=== PATIENT | male | born 1955 | race Caucasian/White ===

== ENCOUNTER 2016-05-11 06:02 | Day surgery (SDC) | payer BC ==
[~2016-05-11] VITALS: Ht 167.6 cm; Wt 80.7 kg
[~2016-05-11 06:02] MED LIST: FISH OIL1 CAP PO; MULTI VITAMIN D1 TAB PO
[2016-05-11 08:30] VITALS: BP 142/61
== END 2016-05-11 08:45 | disposition home or self-care (01) | DRG 951 ==
LOC: ENDO 06:02
PROVIDERS: ATTEND Surgery
PROC: 0DJD8ZZ Inspection of Lower Intestinal Tract, Via Natural or Artificial Opening Endoscopic (ICD-10-PCS; principal; 2016-05-11)
DX: Z12.11 Encounter for screening for malignant neoplasm of colon (principal); E11.9 Type 2 diabetes mellitus without complications

== ENCOUNTER 2018-12-27 08:51 | Day surgery (SDC) | payer MEDICARE ==
[~2018-12-27] VITALS: Ht 167.6 cm; Wt 78.0 kg
[~2018-12-27 08:51] MED LIST changes: +ASPIRIN81 MG PO; +COQ10200 MG PO; +LIPITOR10 M1 PO; +MAGNESIUM250 M2 PO; +SAW PALMETTO160 M1 PO
[2018-12-27] MEDS ORDERED: PERCOCET 5/325M1 TAB PO (11:37)
[2018-12-27 12:14] VITALS: BP 152/83
== END 2018-12-27 12:20 | disposition home or self-care (01) ==
LOC: ORM 08:51
PROVIDERS: ATTEND Surgery
PROC: 06BY3ZC Excision of Hemorrhoidal Plexus, Percutaneous Approach (ICD-10-PCS; principal; 2018-12-27)
DX: K64.8 Other hemorrhoids (principal)
CPT/HCPCS: C9290; J0131

== ENCOUNTER 2019-08-16 18:46 | Emergency (ER) | payer MEDICARE ==
[~2019-08-16] VITALS: Ht 170.2 cm; Wt 77.2 kg
[~2019-08-16 18:46] MED LIST changes: +PERCOCET 5/325M1 TAB PO
[2019-08-16] MEDS ORDERED: METFORMIN500 M2 PO (19:07)
[2019-08-16 19:42] LABS: HEMATOCRIT 37.3 % (39.0-50.0); HEMOGLOBIN 12.9 g/dl (14.0-18.0); IMMATURE GRANULOCYTES 0.4 % (0.0-5.0); MEAN CELL VOLUME 90.5 fL CALC (80.0-100.0); MEAN CORPUSCULAR HGB 31.3 pG CALC (26.0-32.0); MEAN CORPUSCULAR HGB CONC 34.6 g/dL CAL (32.0-36.0); NEUT# 4.42 thou/uL (1.82-7.42); RED BLOOD COUNT 4.12 mill/uL (4.70-6.10); RED CELL DISTRI WIDTH 11.9 % (11.5-15.5); URINE BLOOD DIPSTICK NEGATIVE (NEGATIVE); URINE COLOR YELLOW; URINE GLUCOSE - DIPSTICK 100 mg/dL (NEGATIVE); URINE KETONE NEGATIVE (NEGATIVE); URINE LEUK ESTERASE NEGATIVE (NEGATIVE); URINE NITRITE - DIPSTICK NEGATIVE (Negative); URINE PROTEIN - DIPSTICK NEGATIVE (NEG-TRACE); URINE UROBILINOGEN - DIPSTICK 0.2 E.U./dL (0.2)
[2019-08-16 20:11] LABS: URINE BILIRUBIN - DIPSTICK MODERATE (NEGATIVE)
[2019-08-16 20:30] LABS: ALBUMIN 4.4 g/dL (3.2-5.0); ALKALINE PHOSPHATASE 308 u/l (38-126); AMYLASE 64 u/l (30-110); ANION GAP 13 (6-22 (CALC)); BILIRUBIN, TOTAL 7.5 mg/dL (0.0-1.4); BUN 15 mg/dL (8-23); BUN/CREATININE RATIO 22 (12-20 (CALC)); CARBON DIOXIDE 26 mmol/l (22-30); CHLORIDE 98 mmol/l (95-108); CREATININE 0.7 mg/dL (0.7-1.3); GFR > 60 ML/MIN (>=60 (CALC)); GFR FOR AFR.AMER. > 60 ML/MIN (>=60 (CALC)); LIPASE 775 u/l (23-300); MAGNESIUM 2.1 mg/dL (1.6-2.3); SGOT/AST 338 u/l (19-48); SODIUM 133 mmol/l (137-146); TOTAL PROTEIN 7.1 g/dL (6.3-8.2)
[2019-08-16 21:24] LABS: DIRECT BILIRUBIN 3.8 mg/dl (0.0-0.3)
[2019-08-16 22:40] VITALS: BP 145/79
== END 2019-08-16 22:40 ==
LOC: ED 18:46
PROVIDERS: Family Medicine
DX: K83.1 Obstruction of bile duct (principal); E11.9 Type 2 diabetes mellitus without complications; Z79.84 Long term (current) use of oral hypoglycemic drugs
CPT/HCPCS: Q9967

== ENCOUNTER 2020-05-02 03:58 | Emergency (ER) | payer MEDICARE ==
[~2020-05-02] VITALS: Ht 167.6 cm; Wt 60.0 kg
[2020-05-02] VITALS (11 sets, daily range): BP systolic 116–135; BP diastolic 67–83
[~2020-05-02 03:58] MED LIST changes: +METFORMIN500 M2 PO
[2020-05-02 05:23] LABS: IMMATURE GRANULOCYTES 2.1 % (0.0-5.0); MEAN CELL VOLUME 90.6 fL CALC (80.0-100.0); MEAN CORPUSCULAR HGB CONC 33.2 g/dL CAL (32.0-36.0); NEUT# 5.86 thou/uL (1.82-7.42); RED BLOOD COUNT 2.03 mill/uL (4.70-6.10); RED CELL DISTRI WIDTH 15.5 % (11.5-15.5)
[2020-05-02 05:27] LABS: HEMATOCRIT 18.4 % (39.0-50.0); HEMOGLOBIN 6.1 g/dl (14.0-18.0)
[2020-05-02] MEDS ORDERED: POTASSIUM CHLO20 ME2 PO (05:43)
[2020-05-02] MEDS ORDERED: TRESIBA100 UNIT/M SC (05:43)
[2020-05-02] MEDS ORDERED: CREON24000 UNT PO (05:44)
[2020-05-02] MEDS ORDERED: OMEPRAZOLE DR40 MG PO (05:44)
[2020-05-02 05:46] LABS: ANION GAP 14 (6-22 (CALC)); BUN 23 mg/dL (8-23); BUN/CREATININE RATIO 62 (12-20 (CALC)); CARBON DIOXIDE 24 mmol/l (22-30); CHLORIDE 97 mmol/l (95-108); CREATININE 0.4 mg/dL (0.7-1.3); GFR > 60 ML/MIN (>=60 (CALC)); GFR FOR AFR.AMER. > 60 ML/MIN (>=60 (CALC)); LIPASE 14 u/l (23-300); POTASSIUM 3.7 mmol/l (3.5-5.1); SODIUM 131 mmol/l (137-146)
[2020-05-02] MEDS ORDERED: MORPHINE SUL15 MG PO (05:46)
[2020-05-02 05:58] LABS: INTERNATIONAL NORMALIZED RATIO 1.1 RATIO (0.7-1.3); PROTHROMBIN TIME 10.9 SECONDS (9.0-12.5)
[2020-05-02 06:09] LABS: ALKALINE PHOSPHATASE 75 u/l (38-126); AMYLASE < 30 u/l (30-110); BILIRUBIN, TOTAL 0.4 mg/dL (0.0-1.4); SGOT/AST 17 u/l (19-48); TOTAL PROTEIN 5.1 g/dL (6.3-8.2)
[2020-05-02 08:01] LABS: URINE BILIRUBIN - DIPSTICK NEGATIVE (NEGATIVE); URINE BLOOD DIPSTICK NEGATIVE (NEGATIVE); URINE COLOR YELLOW; URINE GLUCOSE - DIPSTICK 250 mg/dL (NEGATIVE); URINE KETONE 15 mg/dL (NEGATIVE); URINE LEUK ESTERASE NEGATIVE (NEGATIVE); URINE NITRITE - DIPSTICK NEGATIVE (Negative); URINE PROTEIN - DIPSTICK NEGATIVE (NEG-TRACE); URINE SPECIFIC GRAVITY >=1.030; URINE UROBILINOGEN - DIPSTICK 0.2 E.U./dL (0.2)
== END 2020-05-02 11:42 | disposition short-term general hospital (02) ==
LOC: ED 03:58
PROVIDERS: Emergency Medicine
PROC: 30233N1 Transfusion of Nonautologous Red Blood Cells into Peripheral Vein, Percutaneous Approach (ICD-10-PCS; principal; 2020-05-02)
PROC: 30233N1 Transfusion of Nonautologous Red Blood Cells into Peripheral Vein, Percutaneous Approach (ICD-10-PCS; 2020-05-02)
DX: K92.0 Hematemesis (principal); C25.9 Malignant neoplasm of pancreas, unspecified; E11.9 Type 2 diabetes mellitus without complications; Z79.4 Long term (current) use of insulin; Z20.822 Contact with and (suspected) exposure to COVID-19
CPT/HCPCS: P9016; S0164

== ENCOUNTER 2020-05-19 20:02 | Emergency (ER) | payer MEDICARE ==
[~2020-05-19] VITALS: Ht 167.6 cm; Wt 65.0 kg
[~2020-05-19 20:02] MED LIST changes: +CREON24000 UNT PO; +MORPHINE SUL15 MG PO; +OMEPRAZOLE DR40 MG PO; +POTASSIUM CHLO20 ME2 PO; +TRESIBA100 UNIT/M SC
[2020-05-19 21:13] LABS: HEMATOCRIT 22.1 % (39.0-50.0); IMMATURE GRANULOCYTES 1.4 % (0.0-5.0); MEAN CELL VOLUME 95.3 fL CALC (80.0-100.0); MEAN CORPUSCULAR HGB 30.2 pG CALC (26.0-32.0); MEAN CORPUSCULAR HGB CONC 31.7 g/dL CAL (32.0-36.0); NEUT# 5.12 thou/uL (1.82-7.42); RED BLOOD COUNT 2.32 mill/uL (4.70-6.10); RED CELL DISTRI WIDTH 16.8 % (11.5-15.5)
[2020-05-19 21:31] LABS: ALKALINE PHOSPHATASE 79 u/l (38-126); BUN 19 mg/dL (8-23); BUN/CREATININE RATIO 28 (12-20 (CALC)); CHLORIDE 96 mmol/l (95-108); CREATININE 0.7 mg/dL (0.7-1.3); GFR > 60 ML/MIN (>=60 (CALC)); GFR FOR AFR.AMER. > 60 ML/MIN (>=60 (CALC)); LIPASE < 10 u/l (23-300); POTASSIUM 3.4 mmol/l (3.5-5.1); SODIUM 129 mmol/l (137-146); TOTAL PROTEIN 5.2 g/dL (6.3-8.2)
[2020-05-19 21:39] LABS: AMYLASE < 30 u/l (30-110); ANION GAP 19 (6-22 (CALC)); BILIRUBIN, TOTAL 0.6 mg/dL (0.0-1.4); CARBON DIOXIDE 17 mmol/l (22-30); SGOT/AST 40 u/l (19-48)
[2020-05-19 21:42] LABS: MYOGLOBIN 54 ng/mL (0 - 121)
[2020-05-19 22:54] VITALS: BP 89/51
[2020-05-19 23:10] VITALS: BP 95/52
[2020-05-20 00:02] VITALS: BP 93/51
--- NOTE | 2020-05-24 10:14 | NUR ---
FINAL BLOOD CX RESULTS SHOW BACILLUS SPECIES, PROBABLE CONTAMINANT, NO PATHOGENS ISOLATED. PT WAS TRANSFERRED TO [facility]. I SPOKE WITH CASE MANAGEMENT PT WAS NO LONGER THERE, PT WAS SENT HOME WITH HOSPICE. GIVEN PTS PMH, I WILL FAX BLOOD CX RESULTS TO PTS PCP, CANELO JIMENEZ.
== END 2020-05-20 01:17 | disposition short-term general hospital (02) ==
LOC: ED 20:02
PROVIDERS: Emergency Medicine
PROC: 30233N1 Transfusion of Nonautologous Red Blood Cells into Peripheral Vein, Percutaneous Approach (ICD-10-PCS; principal; 2020-05-19)
DX: A41.9 Sepsis, unspecified organism (principal); K92.2 Gastrointestinal hemorrhage, unspecified; C25.9 Malignant neoplasm of pancreas, unspecified; E11.9 Type 2 diabetes mellitus without complications; K31.6 Fistula of stomach and duodenum; Z79.4 Long term (current) use of insulin; Z20.822 Contact with and (suspected) exposure to COVID-19
CPT/HCPCS: P9016; S0164